=== PATIENT | female | born 1940 | race Caucasian/White ===

== ENCOUNTER → 2016-09-14 | Outpatient (CLI) | payer BC, MEDICARE ==
[~2016-09-14] MED LIST: AMITRIPTYLINE100 MG PO; ASPIRIN EC81 MG PO; EXCEDRIN MIGRA1 EACH PO; NEURONTIN300 MG PO; NORVASC5 MG PO; VERAPAMIL ER180 MG PO
== END | disposition short-term general hospital (02) ==
LOC: CLORTH 08:33
DX: M16.12 Unilateral primary osteoarthritis, left hip (principal); Z96.641 Presence of right artificial hip joint
CPT/HCPCS: 73502-LT